=== PATIENT | female | born 1960 | race Caucasian/White ===

== ENCOUNTER 2022-03-04 15:55 | Outpatient (CLI) | payer OTHER, SELFPAY ==
--- NOTE | ~2022-03-04 | MR_ITS ---
EXAMINATION: MR wrist LT wo con DATE: 03/04/2022 16:58 INDICATION: Ulnar-sided left wrist pain post fall 3 weeks prior TECHNIQUE: Magnetic resonance imaging (MRI) of the left wrist was performed without intravenous contr ast. Sequences performed include axial PD-weighted FSE and PD-weighted FS FSE, coronal PD-weighted FS FSE and T1-weighted SE, and sagittal PD-weighted FS FSE and PD-weighted FSE. COMPARISON: None FINDINGS: Intrinsic ligaments: Partial tear at the central membranous component of the scapholunate ligament. The dorsal and volar c omponents are intact. The lunotriquetral ligament is normal. Triangular fibrocartilage complex (TFCC): Mild partial tear along the ulnar articular surface of the central fibrocartilaginous disc of the tri angular fibrocartilage complex. The foveal and styloid attachments as well as the dorsal and volar ra dioulnar ligaments are normal. The ulnar collateral ligament, ulnotriquetral ligament and meniscal ho mologue are normal. The torn extensor carpi ulnaris subsequently appears lax in the radial side of th e extensor carpi ulnaris groove with partial ulnar subluxation of the extensor carpi ulnaris tendon a cross the ulnar rim and ulnar styloid process. Extensor wrist: Extensor tendons of the wrist are normal. No tenosynovitis. Flexor wrist: The flexor tendons of the wrist are normal. No abnormality in the carpal tunnel with normal median n erve. Guyon's canal: Guyon's canal including the ulnar nerve and artery are normal. Bones/other: 3 mm ulnar minus variance. Alignment is otherwise normal. Normal marrow signal. No fracture, erosions , avascular necrosis or abnormal marrow replacing process. Joint spaces are normal with no focal car tilage defects appreciated. Loculated fluid collection measuring 10 x 8 x 4 mm in the subcutaneous fa t consistent ulnar to the distal ulna slightly dorsal to the flexor carpi ulnaris myotendinous juncti on with some low signal intensity stranding in the surrounding subcutaneous fat. There is slightly in creased T1 signal suggestive of hemorrhage or proteinaceous fluid. IMPRESSION: 1. 10 x 8 x 4 mm T1 hyperintense and slightly T1 hyperintense loculated fluid collection in the subcu taneous fat overlying the ulnar side of the distal ulna which given the history of pain and swelling at this location post injury 3 weeks prior with the most consistent with a small hematoma/seroma. Dif ferential would include abscess in the appropriate clinical setting. 2. Partial tear along the ulnar articular surface of the fiber cartilaginous disc of the otherwise no rmal parenchyma fibrocartilage complex. 3. Tear of the extensor carpi ulnaris subtle sheath with partial subluxation of the extensor carpi ul naris tendon across the ulnar rim of the ECU groove. 4. Partial tear of the central membranous component of the scapholunate ligament which is of doubtful significance with intact dorsal and volar components of the ligament. Reviewed, dictated and finalized at location A. IMPRESSION: 1. 10 x 8 x 4 mm T1 hyperintense and slightly T1 hyperintense loculated fluid c ollection in the subcutaneous fat overlying the ulnar side of the distal ulna w hich given the history of pain and swelling at this location post injury 3 week s prior with the most consistent with a small hematoma/seroma. Differential wou ld include abscess in the appropriate clinical setting. 2. Partial tear along the ulnar articular surface of the fiber cartilaginous di sc of the otherwise normal parenchyma fibrocartilage complex. 3. Tear of the extensor carpi ulnaris subtle sheath with partial subluxation of the extensor carpi ulnaris tendon across the ulnar rim of the ECU groove. 4. Partial tear of the central membranous compo
== END 2022-03-04 15:56 | disposition home or self-care (01) ==
PROVIDERS: PCP Family Medicine
DX: M25.532 Pain in left wrist (principal)
CPT/HCPCS: 73221